=== PATIENT | female | born 1965 | race Two or more races ===

== ENCOUNTER 2023-09-30 13:05 | Emergency (ER) | payer MEDICAID ==
[~2023-09-30] VITALS: Ht 152.4 cm; Wt 68.0 kg
[2023-09-30 13:21] VITALS: O2SAT 96
[2023-09-30] MEDS ORDERED: MAGNESIUM/ALUMINUM HYDROXIDE/SIMETHICONE 30ML UDC PO STA (13:47)
[2023-09-30] MEDS ORDERED: FAMOTIDINE 20MG TABLET PO ONE (14:00)
[2023-09-30] MEDS ORDERED: VISCOUS LIDOCAINE 2% 15 ML UDC PO NR ×2 (15:00→15:15)
[2023-09-30 15:06] LABS: BASOPHILS % 0.1 % (0.0-2.0); DIFFERENTIAL COMMENT 0; EOSINOPHILS % 2.1 % (0.0-5.0); HEMATOCRIT. 35.4 % (36.0-48.0); HEMOGLOBIN. 11.2 g/dL (12.0-16.0); MEAN CORPUSCULAR HEMOGLOBIN 24.4 pg (28.0-32.0); MEAN CORPUSCULAR HGB CONC 31.6 g/dL (31.0-37.0); MEAN CORPUSCULAR VOLUME 77.2 fL (81.0-99.0); MEAN PLATELET VOLUME 8.8 fl (7.4-10.4); MONOCYTES % 6.6 % (2.0-8.0); NEUTROPHILS % 73.2 % (40.0-76.0); PLATELET 167 x1000/uL (130-400); RED BLOOD CELL COUNT 4.59 mill/uL (4.2-5.4); RED CELL DISTRIBUTION WIDTH 18.6 % (11.6-14.6); WHITE BLOOD COUNT 7.6 x1000/uL (4.5-11.0)
[2023-09-30 15:21] LABS: ALANINE AMINOTRANSFERASE 19 IU/L (10-49); ASPARTATE AMINOTRANSFERASE 21 IU/L (<34); BILIRUBIN TOTAL 0.3 mg/dL (0.1-1.0); CARBON DIOXIDE 23 mEq/L (21-32); CHLORIDE 109 mEq/L (98-107); CREATININE 0.5 mg/dL (0.6-1.0); GLUCOSE 91 mg/dL (70-105); POTASSIUM 3.6 mEq/L (3.5-5.1); PROTEIN TOTAL 6.8 g/dL (6.0-8.3); SODIUM 141 mEq/L (136-145); UREA NITROGEN BLOOD 9 mg/dL (9-23)
[2023-09-30 15:31] LABS: TROPONIN I HIGH SENSITIVITY < 4 ng/L (3.0-34)
[2023-09-30] MEDS ORDERED: MAGNESIUM/ALUMINUM HYDROXIDE/SIMETHICONE 30ML UDC PO NR (17:56)
[2023-09-30] MEDS ORDERED: FAMOTIDINE 20MG TABLET PO NR (17:57)
[2023-09-30 17:59] LABS: CLARITY URINE TURBID (CLEAR); COLOR URINE YELLOW (YELLOW); GLUCOSE URINE NEGATIVE (NEGATIVE); KETONES URINE TRACE (NEGATIVE); LEUKOCYTE ESTERASE URINE 3+ (NEGATIVE); NITRITE URINE NEGATIVE (NEGATIVE); OCCULT BLOOD URINE TRACE (NEGATIVE); PROTEIN URINE 1+ (NEGATIVE); SPECIFIC GRAVITY URINE 1.021 (1.005-1.030)
[2023-09-30 18:13] LABS: BACTERIA URINE 4+; RBC URINE 0-2 /hpf (0-2); SQUAMOUS EPITHELIAL CELL URINE 1+ /lpf (RARE/1+); WBC URINE TNTC /hpf (0-2)
[2023-09-30] MEDS ORDERED: CEPH250C2 MT (19:23)
[2023-09-30 19:56] VITALS: BP 125/87; PULSE 95; RESP 18; TEMP 98.5
== END 2023-09-30 19:57 | disposition home or self-care (01) ==
LOC: ER 14:26
DX: R10.11 Right upper quadrant pain (principal); I10 Essential (primary) hypertension
CPT/HCPCS: 36415; 71045; 74176; 76705; 80053; 81003; 81025; 84484; 85025; 87077; 87186; 99291